=== PATIENT | female | born 1995 | race Caucasian/White ===

== ENCOUNTER 2016-06-14 22:00 | Emergency (ER) | payer BC ==
[2016-06-14] MEDS ORDERED: methylPREDNISolone SOD SUCC* 1000 MG ML VIAL IVPB ONE (22:50)
[2016-06-14] MEDS ORDERED: methylPREDNISolone 125 MG* 2 ML VIAL IV ONE (22:50)
[2016-06-14] MEDS ORDERED: diPHENhydraMINE IV* 50 MG/ML 1 ml VIAL (BENADRYL) IV ONE (22:51)
[2016-06-15 00:01] LABS: Hematocrit 39 % (35-47); Hemoglobin 13.5 g/dl (12.0-16.0); Mean Corpuscular HGB Conc 34 g/dl (31-36); Mean Corpuscular Hemoglobin 30 pg (27-31); Mean Corpuscular Volume 87 fL (80-97); Mean Platelet Volume 8 um3 (7.4-10.4); Red Blood Count 4.49 10^6/ul (4.0-5.4); Red Cell Distribution Width 13 % (10.5-15); White Blood Count 8.5 10^3/ul (3.5-10.8)
[2016-06-15 00:25] LABS: ALT 10 U/L (7-52); AST 21 U/L (13-39); Albumin 4.4 g/dL (3.2-5.2); Alkaline Phosphatase 57 U/L (34-104); Anion Gap 10 mmol/L (2-11); BUN/Creatinine Ratio 19.1 (8-20); Blood Urea Nitrogen 13 mg/dL (6-24); CO2 Carbon Dioxide 25 mmol/L (22-32); Chloride 100 mmol/L (101-111); EGFR African American 140.5 (>60); EGFR Non-African American 109.2 (>60); Globulin 2.9 g/dL (2-4); Glucose 95 mg/dL (70-100); Potassium 3.6 mmol/L (3.5-5.0); Sodium 135 mmol/L (133-145); Total Protein 7.3 g/dL (6.4-8.9)
[2016-06-15] MEDS ORDERED: methylPREDNISolone 125 MG* 2 ML VIAL ONE (00:33)
[2016-06-15] MEDS ORDERED: methylPREDNISolone 125 MG* 2 ML VIAL IV ONE (01:00)
[2016-06-15] MEDS ORDERED: oxyCODONE/Acetamin 5/325 MG* TAB PO ONE (01:41)
--- NOTE | 2016-06-15 01:51 | ED ---
Nishant Dobbins Aidan, scribed for Quentin Gonzalez on 06/14/16 at 2244 . Skin Complaint - HPI Summary HPI Summary: 20 y/o female presents to the ED with a complaint of an acute, constant, [id number] painful (10/10 in terms of pain, according to the nurse' s notes) and itchy rash that began 2 days ago on her hands. Just before the onset of the rash, she had a sore throat and a burning sensation in her hands. Yesterday morning, she felt a similar burning sensation in her feet bilaterally and, as the day progressed, she developed a similar rash on her feet. Today, she noticed that the rash had spread throughout her chest diffusely. At the Urgent Care yesterday, she was diagnosed with hand, foot, and mouth. Pt denies eating anything abnormal. - History of Current Complaint Chief Complaint: EDGeneral Time Seen by Provider: 06/14/16 22:19 Stated Complaint: RASH Hx Obtained From: Patient Onset/Duration: Started Days Ago, Still Present Skin Exposure Onset/Duration: Days Ago Timing: Constant, Lasting Days Onset Severity: Moderate Current Severity: Severe Pain Intensity: 10 Pain Scale Used: 0-10 Numeric Skin Location: Chest - diffusely, Hand - bilaterally, Foot - bilaterally Character: Painful - painful bumps Aggravating Symptom(s): Other: - unknown Alleviating Symptom(s): Other: - unknown Associated Signs & Symptoms: Rash - painful rash, sore throat during onset - Allergy/Home Medications Allergies/Adverse Reactions: Allergies Allergy/AdvReac Type Severity Reaction Status Date / Time No Known Allergies Allergy Verified 06/14/16 22:54 PMH/Surg Hx/FS Hx/Imm Hx Endocrine/Hematology History: Denies: Hx Anticoagulant Therapy Infectious Disease History: No Infectious Disease History: Denies: Traveled Outside the [place] in Last 30 Days - Family History Known Family History: Negative: Seizure Disorder - Social History Occupation: Student Lives: Alone Alcohol Use: Rare Substance Use Type: Reports: None Smoking Status (MU): Never Smoked Tobacco Review of Systems Constitutional: Negative Eyes: Negative Positive: Sore Throat - during onset of rash. Negative: Epistaxis, Dental Pain , Ear Ache, Nasal Discharge Cardiovascular: Negative Respiratory: Negative Gastrointestinal: Negative Genitourinary: Negative Musculoskeletal: Negative Positive: Rash - painful Neurological: Negative Psychological: Normal All Other Systems Reviewed And Are Negative: Yes Physical Exam Triage Information Reviewed: Yes Vital Signs On Initial Exam: Initial Vitals Temp Pulse Resp BP Pulse Ox 99.0 F 88 18 104/75 98 06/14/16 22:07 06/14/16 22:07 06/14/16 22:07 06/14/16 22:07 06/14/16 22:07 Vital Signs Reviewed: Yes Appearance: Positive: Well-Appearing, No Pain Distress Skin: Positive: Warm, Skin Color Reflects Adequate Perfusion, Dry, Other - maculopapular rash of hands and palms, macular rash of abdomen and chest Head/Face: Positive: Normal Head/Face Inspection Eyes: Positive: EOMI, CHRISSY ENT: Positive: Normal ENT inspection Neck: Positive: Supple, Nontender Respiratory/Lung Sounds: Positive: Clear to Auscultation, Breath Sounds Present Cardiovascular: Positive: RRR, Pulses are Symmetrical in both Upper and Lower Extremities Abdomen Description: Positive: Nontender, Soft, Other: - benign abdominal exam Bowel Sounds: Positive: Present Musculoskeletal: Positive: Strength/ROM Intact Neurological: Positive: Sensory/Motor Intact, Alert, Oriented to Person Place, Time Psychiatric: Positive: Affect/Mood Appropriate AVPU Assessment: Alert Diagnostics - Vital Signs Vital Signs Temp Pulse Resp BP Pulse Ox 06/14/16 22:07 99.0 F 88 18 104/75 98 - Laboratory Result Diagrams: 06/14/16 00:45 06/14/16 00:45 Lab Statement: Any lab studies that have been ordered have been reviewed, and results considered in the medical decision making process. Course/Dx - Course Course Of Treatment: This is a 20 y/o female presenting to the ED with an acute , constant, [id number] painful (10/10 in terms of pain, according to the nurse's notes) and itchy rash that began 2 days ago on her hands. Just before the onset of the rash, she had a sore throat and a burning sensation in her hands. Yesterday morning, she felt a similar burning sensation in her feet bilaterally and, as the day progressed, she developed a similar rash on her feet. Today, she noticed that the rash had spread throughout her chest diffusely. At the Urgent Care yesterday, she was diagnosed with hand, foot, and mouth. Pt denies eating anything abnormal. - Diagnoses Provider Diagnoses: Hand, foot and mouth disease, Generalized rash Discharge - Discharge Plan Condition: Stable Disposition: HOME Discharge Disposition Comment: Follow up with your primary in 2 days. If fever develops, return in 2 days. Patient Education Materials: Acute Rash (ED), Hand, Foot, and Mouth Disease (ED ) The documentation as recorded by the Nishant jefferson Aidan accurately reflects the service I personally performed and the decisions made by , Quentin Gonzalez.
[2016-06-15 02:22] VITALS: BP 110/60
--- NOTE | 2016-06-15 07:39 | RAD ---
INDICATION: Chest tightness COMPARISON: None TECHNIQUE: PA and lateral views of the chest were obtained. FINDINGS: The heart and mediastinum are normal in size and contour. The lungs are grossly clear. There is no evidence of large pleural effusion. Visualized bones are normal for the patient's age. There is no radiographic evidence of free air beneath the diaphragm IMPRESSION: No radiographic evidence of acute cardiopulmonary disease.
== END 2016-06-15 02:22 | disposition home or self-care (01) ==
LOC: ED 22:00
DX: R21 Rash and other nonspecific skin eruption (principal); B08.4 Enteroviral vesicular stomatitis with exanthem
CPT/HCPCS: 36415; 71020; 80053; 84702; 85025; 85610; 85730; 86703; 87040; 96374; 96375; 99283; A9270-GY; J1200; J2930